=== PATIENT | male | born 1950 | race Caucasian/White ===

== ENCOUNTER 2016-11-28 11:08 | Day surgery (SDC) | payer MEDICARE ==
[~2016-11-28] VITALS: Ht 188 cm; Wt 83.9 kg
[~2016-11-28 11:08] MED LIST: 0.9% Sodium Chloride 1,000 ML IV PRN; DEX1 PO; FLUO20TA28 PO; KLO5T PO; LAMO100T2 PO; OMEP20CA11 PO; ONDA8TAB7 PO; PROC10TA PO; Sodium Chloride LOK Flush 10 mL Syringe IV PRN; fentaNYL-PF 50 mCg/mL 2 mL Inj IVPUSH PRN
[2016-11-28 11:53] VITALS: BP 121/57; PULSE 60; RESP 14; O2SAT 99
[2016-11-28] MEDS ORDERED: PRD5T PO (12:00)
[2016-11-28 13:42] VITALS: BP 129/70; PULSE 65; RESP 15; O2SAT 94
[2016-11-28 13:52] VITALS: BP 128/69; PULSE 65; RESP 16; O2SAT 96
[2016-11-28 14:00] VITALS: BP 131/69; PULSE 63; RESP 16; O2SAT 95
--- NOTE | 2016-11-28 23:07 | ENDO ---
[address] [address] ENDOSCOPY PROCEDURE PATIENT: DIPIKA MCKEON : 1950 MR#: [id number] ADMIT: 11/28/2016 JOB ID: [id number] DATE: 11/28/2016 PROCEDURE: Colonoscopy. INDICATIONS: A 66-year-old male with a personal history of colon polyps who experienced a capsule endoscopy for anemia back in April of last year. This was immediately following a colonoscopy but at capsule it appeared as though there might be a lesion in the very terminal ileum and repeat colonoscopy was suggested. The patient has recently been treated for brain tumor and has since stabilized on this score. He presents today for the recommended repeat exam. EQUIPMENT: PCOfuz 180 AL. SEDATION: Versed and fentanyl titrated to clinical effect. BOWEL PREPARATION: Fair. PROCEDURE INFORMATION: After the risks and benefits were explained, written and verbal informed consent was obtained. The patient was brought into the endoscopy suite and placed into the left lateral decubitus position. Sedation was achieved as above. A digital rectal examination accomplished. Apart from some mild hemorrhoids, no pathology appreciated. The scope was introduced into the rectum and advanced to the cecum as identified by the appendiceal orifice and ileocecal valve. The terminal ileum was interrogated. The scope was slowly withdrawn to carefully examine the mucosa for any defects or lesions. Retroflex views were accomplished in the rectum. The colon was decompressed. The scope removed from the patient who tolerated the procedure well. FINDINGS: No macroscopic colitis. No significant colon polyps identified throughout. Retroflexed views of the rectum were unremarkable. I did not identify any residual polypoid mucosa at the level of the ileocecal valve. There were a couple of small nonbleeding AVMs associated with the cecum. Photographs were taken. The terminal ileum was interrogated, and I did not see any evidence of inflammation. No mass lesions. Several scattered classic benign lymphoid aggregates noted. There was nothing in this region that suggested need for histologic sampling. Approximately 10 cm of terminal ileum was visualized. ENDOSCOPIC DIAGNOSES: 1. Small nonbleeding cecal arteriovenous malformations. 2. Hemorrhoids. 3. Otherwise, no concerning pathology throughout. RECOMMENDATIONS: 1. Repeat colonoscopy in five years. 2. Bowel regimen for soft, regular bowel movements.
[2017-01-19] MEDS ORDERED: BUPR-97 PO (16:17)
== END 2016-11-28 23:59 | disposition home or self-care (01) ==
LOC: END 11:08
PROVIDERS: ATTEND Internal Medicine Gastroenterology
DX: K55.20 Angiodysplasia of colon without hemorrhage (principal); K64.9 Unspecified hemorrhoids
CPT/HCPCS: G0121; J2250; J7030

== ENCOUNTER 2017-03-12 07:34 | Emergency (ER) | payer MEDICARE ==
[~2017-03-12] VITALS: Ht 188 cm; Wt 81.8 kg
[~2017-03-12 07:34] MED LIST changes: -0.9% Sodium Chloride 1,000 ML IV PRN; +BUPR-97 PO; -DEX1 PO; -ONDA8TAB7 PO; +PRD5T PO; -PROC10TA PO; -Sodium Chloride LOK Flush 10 mL Syringe IV PRN; -fentaNYL-PF 50 mCg/mL 2 mL Inj IVPUSH PRN
[2017-03-12 07:37] VITALS: BP 111/58; PULSE 59; RESP 10; O2SAT 98
--- NOTE | 2017-03-12 07:46 | ED.REPORT ---
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 Pain progressively worsens with prolonged activity, but is also periodically present while at rest, and prevents him from sleeping at night. Patient denies lower extremity swelling, and numbness/ tingling/weakness of the affected leg. He admits to a mechanical ground level fall two weeks ago while walking around his property, though he is unable to provide details of the fall such as the mechanism and how he landed. Currently he is on a course of Prednisone. Nursing Notes Stated Complaint: RT KNEE FEELS ODD POSS BLOOD CLOT Chief Complaint: Extremity Trauma Nursing Notes Reviewed: Yes Allergies: Coded Allergies: No Known Allergies (Verified Allergy, Unknown, 04/19/16) Scheduled Bupropion ER (Wellbutrin XL) 150 Mg Tab.er.24h 150 MG PO DAILY Clonazepam (Clonazepam) 0.5 Mg Tablet 1 MG PO TID Fluoxetine (Fluoxetine) 20 Mg Tablet 20 MG PO BID Lamotrigine (Lamotrigine) 100 Mg Tablet 50 MG PO QAM Lamotrigine (Lamotrigine) 100 Mg Tablet 100 MG PO HS Omeprazole (Omeprazole) 20 Mg Capsule.dr 20 MG PO DAILY Prednisone (PredniSONE) 5 Mg Tab 5 MG PO DAILY General Time Seen by MD: 07:45 Chief Complaint Knee injury right Hx Obtained From: Patient Arrived By: Walk-in Onset Occurred: More than a week ago... (2 weeks) Symptom Duration: Since onset Caused by: Accidental, Fall on ground Context: Occurred at: Home injury Location: : Knee right Quality: Painful Severity: Current: Moderate Severity: Maximum: Moderate Pertinent Negative: Pt denies other symptoms Exacerbated by: Range of motion, Movement Pertinent Negative: Relieved by nothing Similar Sx Previous: No Past Medical History Past Medical History Notes: Oncologist: Dr. 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 Physical Exam Initial Vital Signs Vital Signs (First) Date Time Temp Pulse Resp B/P Pulse Ox O2 Delivery O2 Flow Rate FiO2 03/12/17 07:37 36.0 59 10 111/58 98 Room Air Initial VS: Reviewed General/Constitutional: Well-developed, Well-nourished Head / Eyes: Atraumatic, Normocephalic Neck: Supple, Non-tender, Full range of motion Upper Extremities: Vascular intact, Neuro intact, No swelling, No tenderness Skin: Warm, Dry, No cyanosis Neurologic: Alert, Oriented, Nonfocal Lower Extremity / Pelvis / MS: Full range of motion, Neurologic intact, Vascular intact RIGHT KNEE/LOWER EXTREMITY: FROM of knee, hip, and ankle Valgus varus negative No ballotement Anterior posterior drawer negative Carter's negative No effusion No calf tenderness, no palpable cords DP and PT pulses palpable bilaterally Bounding popliteal pulses Capillary refill less than 2 seconds Ankle / Foot: Atraumatic, Inspection NL, Full range of motion, No swelling, No erythema, Non-tender, No deformity, Neurologic intact, Vascular intact, No edema Interpretation & Diagnostics US Soft Tissue/Musculoskeletal US VEINOUS LEG DUPLEX UNILATERAL, RIGHT IMPRESSION: No deep venous thrombosis identified within the right lower extremity. Dictated by: Lazaro Ann RRA Interpreted: Ricardo Allan MD on 03/12/2017 at 9:09 Transcribed by: SOUMYA on 03/12/2017 at 9:10 Exam Performed by: Allied health pract Exam Type: Diagnostic Clinical Category: Symptom-based Exam Interpreted by: Radiologist Indication: Pain Re-Eval/Medical Decision Source of Hx: Old records Re-Evaluation/Progress #1: Time of Eval: 08:07 Re-Evaluation/Progress Note: Discussed physical examination results and plan for ultrasound. Re-Evaluation/Progress #2: Time of Eval: 08:29 Re-Evaluation/Progress Note: Discussed US results and plan to discharge. Patient is amenable to the plan. Return precautions given. All other questions addressed. Counseled Regarding: Diagnosis, Lab results, Need for follow-up, When/why to return to ED Discharge & Departure Impression: Primary Impression: Right knee pain Ruled Out: DVT (deep venous thrombosis), Atherosclerosis of [place] artery of extremity with intermittent claudication Disposition: Home Discharge Condition All VS Reviewed: Yes Condition: Stable Additional Instructions: Your workup today was reassuring. The ultrasound did not indicate any sign of blood clot, and your lab results were normal. Go home and rest. Activity as tolerated; try to take it easy to allow your body to heal. Use Tylenol or ibuprofen as directed for pain. Ice can be helpful as well If not improving over the next weeks, please see Dr Castro to see if any advanced imaging is indicated Return to the ER if your pain worsens or you develop shortness of breath, swelling of the legs, chest pain, cough, or any other concerning symptoms. Referrals: Db Castro MD (PCP) Delmis Attestation Portions of this note were transcribed by Amadou Carter. I, Dr. Logan, personally performed the history, physical exam and medical decision-making; I reviewed and confirmed the accuracy of the information in the transcribed note. Signed by: Delmis Bautista, 03/12/2017 at 09:42 copies to: Db Castro MD, Shawna L MD Mar 12, 2017 07:46 AMADOU CARTER Mar 12, 2017 07:54
--- NOTE | 2017-03-12 09:10 | DRSVH ---
PROCEDURE: US VEINOUS LEG DUPLEX UNILATERAL, RIGHT INDICATIONS: pain, unilateral TECHNIQUE: Real-time imaging, as well as color and pulse Doppler interrogation, were performed of the lower extr emity deep veins from the inguinal ligament to the popliteal fossa. COMPARISON: None. FINDINGS: The deep veins are normally compressible, and free of intraluminal thrombus. Color and pu lse Doppler demonstrate normal phasic intraluminal flow. There is normal augmentation response to di stal compression maneuver. IMPRESSION: No deep venous thrombosis identified within the right lower extremity. Dictated by: Lazaro Ann [facility] Interpreted: Ricardo Allan MD on 03/12/2017 at 9:09 Transcribed by: SOUMYA on 03/12/2017 at 9:10 Approved by: Ricardo Allan M.D. on 03/12/2017 at 10:52
== END 2017-03-12 08:50 | disposition home or self-care (01) ==
LOC: SED 07:34
DX: M25.561 Pain in right knee (principal); W18.30XA Fall on same level, unspecified, initial encounter; Y93.01 Activity, walking, marching and hiking; Y92.9 Unspecified place or not applicable; Y99.8 Other external cause status

== ENCOUNTER 2017-06-04 12:31 | Emergency (ER) | payer MEDICARE ==
[~2017-06-04] VITALS: Ht 188 cm; Wt 86.4 kg
[~2017-06-04 12:31] MED LIST changes: -LAMO100T2 PO
[2017-06-04 12:33] VITALS: BP 115/69; PULSE 55; RESP 16; O2SAT 97
[2017-06-04 12:49] VITALS: BP 110/40; PULSE 63; RESP 10
--- NOTE | 2017-06-04 12:54 | ED.REPORT ---
HPI-Neurologic Deficit Date of Service Jun 04, 2017 ED Provider: Tia Logan MD A 66 year old male with a history of brain cancer in remission and focal seizures presents to the ED with family due to a possible stroke. The pt's family noticed a right-sided facial droop five days ago in addition to dragging of his right leg, increasingly frequent falls, decreased motor skills in the right hand, grogginess and generalized right-sided weakness. The pt has also had difficulty speaking for over a year due to his cancer but has seemed increasingly at a loss for words. He denies fever, chills, headache, rash, nausea, vomiting or diarrhea. The pt has an appointment scheduled with his primary care physician tomorrow. Nursing Notes Stated Complaint: POSSIBLE STROKE Chief Complaint: Neuro Symptoms/ Deficits Nursing Notes Reviewed: Yes Allergies: Coded Allergies: No Known Allergies (Verified Allergy, Unknown, 06/04/17) Scheduled Bupropion ER (Wellbutrin XL) 300 Mg Tab.er.24h 300 MG PO DAILY Fluoxetine (Fluoxetine) 20 Mg Tablet 20 MG PO BID Omeprazole (Omeprazole) 20 Mg Capsule.dr 20 MG PO DAILY Scheduled PRN Clonazepam (Clonazepam) 1 Mg Tablet 1.5 MG PO TID PRN PRN For Anxiety General Time Seen by Provider: 12:43 Chief Complaint Other (Right-sided weakness) Hx Obtained From: Patient, Other family... Arrived By: Walk-in Sudden in Onset?: No Onset Occurred: 5 days ago Symptom Duration: Since onset Progression Since Onset: Gradually worsening Recent Healthcare: Recent doctor visit Similar Sx Previous: No Past Medical History Past Medical History Notes: Oncologist: Dr. 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 Physical Exam Initial Vital Signs Vital Signs (First) Date Time Temp Pulse Resp B/P Pulse Ox O2 Delivery O2 Flow Rate FiO2 06/04/17 12:33 36.5 55 16 115/69 97 Room Air Initial VS: Reviewed General/Constitutional: Awake, Alert Head / Eyes: Atraumatic, Normocephalic, PERRL, EOMI Respiratory / Chest: Atraumatic, Breath sounds NL, Breath sounds = bilat, No respiratory distress Cardiovascular: Heart rate NL, Regular rhythm, Heart sounds NL Neurologic: Oriented X3 moderate expressive aphasia mild receptive aphasia right-sided facial droop right arm drift 4/5 motor strength of the right leg ENT: Atraumatic, Airway patent, Mucous membranes moist Neck: Atraumatic, Supple, Full range of motion Abdomen: Atraumatic, Soft, Non-tender Back: Atraumatic, Full range of motion Upper Extremity / MS: Atraumatic, Full range of motion Lower Extremity / Pelvis / MS: Atraumatic, Full range of motion, No edema Skin: Atraumatic, Color NL, No rash, Warm, Dry well-perfused Psychiatric: Affect NL, Mood NL Interpretation & Diagnostics Lab Results Interpretation Result Diagram: 06/04/17 1300 06/04/17 1300 Test 06/04/17 13:00 White Blood Count 4.5th/mm3 (3.8-10.1) Red Blood Count 4.36mil/mm3 (4.40-5.80) Hemoglobin 13.7g/dL (13.8-17.2) Hematocrit 42.0% (41.0-50.0) Mean Corpuscular Volume 96.3fL (81-100) Mean Corpuscular Hemoglobin 31.4pg (27.0-35.0) Mean Corpuscular Hemoglobin Concent 32.6% (32.0-37.0) Red Cell Distribution Width 14.7% (12.3-15.4) Platelet Count 200bil/L (150-400) Neutrophils (%) (Auto) 66.9% (40-74) Lymphocytes (%) (Auto) 18.2% (14-46) Monocytes (%) (Auto) 11.1% (4-12) Eosinophils (%) (Auto) 2.9% (0-5) Basophils (%) (Auto) 0.7% (0-3) Sodium Level 140mEq/L (134-144) Potassium Level 4.3mEq/L (3.5-5.2) Chloride Level 103mEq/L (97-108) Carbon Dioxide Level 23mmol/L (18-29) Blood Urea Nitrogen 23mg/dL (8-27) Creatinine 0.93mg/dL (0.76-1.27) Estimat Glomerular Filtration Rate 86mL/min (>59) Glucose Level 105mg/dL (60-99) Calcium Level 9.3mg/dL (8.5-10.1) Magnesium Level 2.4mg/dL (1.6-2.6) Total Bilirubin 0.4mg/dL (0.0-1.2) Aspartate Amino Transf (AST/SGOT) 14U/L (0-50) Alanine Aminotransferase (ALT/SGPT) 9U/L (0-44) Alkaline Phosphatase 67U/L (25-160) Total Protein 6.6g/dL (6.4-8.4) Albumin 3.9g/dL (3.4-5.0) Lipase 57U/L (13-60) Lab Results Interpretation: MRI brain with contrast: IMPRESSION: 1. New rim-enhancing lesion within the left basal ganglia which extends into the left midbrain with extensive vasogenic edema, moderate mass effect, and trace midline shift. No evidence for herniation at this time. The finding suggest tumor recurrence. Neurosurgical consult recommended. These findings were discussed with Dr. Beth at 4:30 PM on 06/04/17. Dictated by: Marci Cabrera M.D. on 06/04/2017 at 15:50 CT Head Interpretation IMPRESSION: 1. Hypodensity in the left hemisphere involving periventricular white matter, caudate, basal ganglia and thalamus, more extensive compared to last MRI dated 04/30/2017, most likely caused by increased vasogenic edema and/or post surgical/post radiation change. Superimposed acute infarct cannot be excluded. No definitive mass is seen in this nonenhanced CT. There is no midline shift. 2. Post surgical changes in the left temporal lobe. 3. Left frontotemporal craniotomy. Dictated by: Raymundo Wilson M.D. on 06/04/2017 at 13:39 Approved by: Raymundo Wilson M.D. on 06/04/2017 at 13:51 Interpretation / Wet Read by: Interpret - Radiologist Re-Eval/Medical Decision Med Decision/Clinical Course Increasing right-sided symptoms. Brain CT suggests increased inflammation. After reviewing with Dr. Ray, he suggested repeating brain MR with contrast. Agreed with the Decadron given in the ER. If there is no findings aside from edema his recommendation is for milligrams of Decadron for the next 2 days and then 2 mg daily until he is able to be seen and evaluated again by Dr. Ray. Source of Hx: Old records Re-Evaluation/Progress : Time of Eval: 14:05 Re-Evaluation/Progress Note: Pt rechecked, who is stable. CT results are discussed. Consultation #1: Referral / Consult Name: Adria Julien MD Call Returned at: 14:16 Note: Spoke with Dr. Ray, oncologist, regarding pt's case. Dr. Ray recommends MRI with contrast. Consultation #2: Consulted With: Textile [employer]ker Call Returned at: 17:06 Note: discussed new [employer] CA relapse with pt, family, Dr Ray. Will talk with rads onc to see if there if benefit to additional emergent radiation for symptomatic relief. With new details, recommends 4mg BID decadron. His office will contact pt tomorrow with plan and follow up Counseled Regarding: Diagnosis, Lab results, Need for follow-up, When/why to return to ED Discharge & Departure Impression: Primary Impression: Brain cancer Additional Impressions: Right sided weakness Vasogenic brain edema Disposition: Home Discharge Condition All VS Reviewed: Yes Condition: Stable Additional Instructions: I am so sorry to share such bad news. Per radiology read of your MRI, there is a new rim-enhancing lesion within the left basal ganglia which extends into the left midbrain with extensive vasogenic edema, moderate mass effect, and trace midline shift. This is a new area of cancer and is causing your current symptoms. The decadron you got in the ER will help with symptoms due to the swelling. I' ve talked with Dr Ray and he will talk with radiation oncology and see if you might benefit from aditional radiation to decrease your symptoms. I respect your wishes to not pursue additional surgery but still be as informed as possible. Dr Ray has recommended 4mg decadron/dexamethaxone am and pm. I've given you a prescription for this and you will need the first dose in the morning. Please expect to hear from Dr Ray's office first thing tomorrow with additional appt times and plans. thank you for you patience today in the ER. I wish you the very best. Referrals: Db Castro MD (PCP) Adria Julien MD Attestation Portions of this note were transcribed by Den Cedillo. I, Dr. Logan personally performed the history, physical exam and medical decision-making; I reviewed and confirmed the accuracy of the information in the transcribed note. Signed by: Delmis Hernandez, 06/04/2017 and 1430. copies to: Adria Julien MD; Db Castro MD, Shawna L MD Jun 04, 2017 12:54 DEN CEDILLO Jun 04, 2017 13:03
[2017-06-04] MEDS ORDERED: BUPR300T51 PO (13:07)
[2017-06-04] MEDS ORDERED: KLO1T PO (13:07)
[2017-06-04 13:13] LABS: BASOPHILS % (AUTO) 0.7 % (0-3); EOSINOPHILS % (AUTO) 2.9 % (0-5); MONOCYTES % (AUTO) 11.1 % (4-12); Mean Corpuscular Hemoglobin 31.4 pg (27.0-35.0); Mean Corpuscular Volume 96.3 fL (81-100); NEUTROPHILS % (AUTO) 66.9 % (40-74); Platelet Count 200 bil/L (150-400)
[2017-06-04 13:37] LABS: Magnesium 2.4 mg/dL (1.6-2.6)
--- NOTE | 2017-06-04 13:53 | DRSVH ---
PROCEDURE: CT BRAIN WITHOUT CONTRAST ([id number]) INDICATIONS: known brain ca, new right side deficits TECHNIQUE: Noncontrast 4.5 mm thick angled axial sections acquired from the foramen magnum to the vertex, with c oronal reformats. COMPARISON: [facility], MR, MR BRAIN W&WO CON, 01/17/2017, 13:07. [facility] , MR, MR BRAIN W&WO CON, 04/30/2017, 13:46. [facility], CT, CT BRAIN WO CON, 12/08/2015, 1 3:16. FINDINGS: Image quality: Excellent. CSF spaces: Basal cisterns are patent. No extra-axial fluid collections. The ventricles are symmet keyon in size and shape. Brain: There is hypodensity in the left hemisphere centrally involving the periventricular white mat ter, basal ganglia and thalamus, as well as caudate. Compared to the last MRI on 04/30/2017, the ananth tory of the involvement is increased. There are postsurgical changes in the left temporal lobe with c ystic cavity, likely secondary to prior craniectomy. No intracranial bleeds or masses visualized on t his nonenhanced CT.. There is cerebral volume loss for age, with resultant ventricular and sulcal pr ominence. There are periventricular and deep white matter chronic small vessel ischemic changes. Th ere is intracranial internal carotid artery atherosclerosis. Skull and face: There is left frontal temporal craniotomy. Sinuses: Visualized sinuses and mastoids are clear. IMPRESSION: 1. Hypodensity in the left hemisphere involving periventricular white matter, caudate, basal ganglia and thalamus, more extensive compared to last MRI dated 04/30/2017, most likely caused by increased va sogenic edema and/or post surgical/post radiation change. Superimposed acute infarct cannot be exclud ed. No definitive mass is seen in this nonenhanced CT. There is no midline shift. 2. Post surgical changes in the left temporal lobe. 3. Left frontotemporal craniotomy. Dictated by: Raymundo Wilson M.D. on 06/04/2017 at 13:39 Approved by: Raymundo Wilson M.D. on 06/04/2017 at 13:51
[2017-06-04] MEDS ORDERED: Dexamethasone Inj 10 MG in 0.9% Sodium Chloride-Pha MIX 50 ML IV ONE (14:05)
--- NOTE | 2017-06-04 16:06 | DRSVH ---
PROCEDURE: MRI BRAIN WITH AND WITHOUT CONTRAST ([id number]) INDICATIONS: right side weakness TECHNIQUE: Noncontrast axial T1 spin echo, axial T2 fast spin echo, sagittal and axial FLAIR, coronal T2 fast sp in echo, axial gradient echo, axial diffusion and ADC through the brain. After the administration of contrast, axial and coronal 3D VIBE or T1 spin echo with fat saturation through the brain. COMPARISON: [facility], MR, MR BRAIN W&WO CON, 11/08/2015, 9:31. [facility], MR, MR B RAIN W&WO CON, 01/17/2017, 13:07. [facility], MR, MR BRAIN W&WO CON, 04/30/2017, 13:46. FINDINGS: Image quality: Excellent. An ill-defined, 2.2 x 2.1 x 2.3 cm rim-enhancing lesion is present within the left basal ganglia. Talon ma and trace enhancement extends into the left midbrain. There is marked surrounding vasogenic edema and associated mass effect on the adjacent lateral ventricles. There is 3 mm rightward midline shift. This is a new finding when compared with the prior MRI of the brain dated 04/30/17. No susceptibility artifact to suggest hemorrhage within this mass lesion. Wound Postsurgical changes are present on the left side including demond holes and temporal lobe resection. T here is resultant ex vacuo dilatation of the posterior horn and anterior horn of the left lateral camilo tricle. The basal cisterns are open. The visualized paranasal sinuses and mastoid air cells are clear. Calvarium is intact. No suspicious bony enhancement or abnormal marrow signal. IMPRESSION: 1. New rim-enhancing lesion within the left basal ganglia which extends into the left midbrain with e xtensive vasogenic edema, moderate mass effect, and trace midline shift. No evidence for herniation a t this time. The finding suggest tumor recurrence. Neurosurgical consult recommended. These findings were discussed with Dr. Beth at 4:30 PM on 06/04/17. Dictated by: Marci Cabrera M.D. on 06/04/2017 at 15:50 Approved by: Marci Cabrera M.D. on 06/04/2017 at 16:04
[2017-06-04 16:09] VITALS: BP 125/77; PULSE 53; RESP 15; O2SAT 97
[2017-06-04] MEDS ORDERED: DEX1 PO (17:16)
[2017-06-04 17:48] VITALS: BP 115/59; PULSE 53; RESP 19; O2SAT 96
[2017-06-06] MEDS ORDERED: DEX1 PO (15:17)
== END 2017-06-04 17:54 | disposition home or self-care (01) ==
LOC: SED 12:31
DX: C71.9 Malignant neoplasm of brain, unspecified (principal); G93.6 Cerebral edema; R53.1 Weakness; Z85.841 Personal history of malignant neoplasm of brain; Z79.891 Long term (current) use of opiate analgesic; Z79.899 Other long term (current) drug therapy
CPT/HCPCS: 36415; 70450; 70553; 80053; 83690; 83735; 85025; 96374; 99285; A9585; J1100